=== PATIENT | female | born 1960 | race Caucasian/White ===

== ENCOUNTER → 2019-11-13 | Outpatient (CLI) | payer OTHER ==
[~2019-11-13] MED LIST: CLARITIN10 MG PO; KEFLEX500 MG PO; LEVOTHYROXINE 0.15MG; LIDODERM 5%1 PATC1 TRANSDERM; MARINOL10 MG PO; MEDROL DOSPAK21 TAB PO; METHADONE HCL 110 M1 OR; MULTIVITAMIN W1 EAC5 PO; NORCO 10-325 T1 EACH PO; OXYCONTIN40 MG PO; PHENERGAN 25 MG25 M1 PO; PREDNISONE 20 M20 MG PO; PREMPHASE 0.621 EAC1; PREVACID DIS; PREVACID30 MG PO; TOPAMAX; TRAMADOL 50 MG50 MG; VALIUM10 MG PO; ZANTAC 150MG T150 MG PO; ZOFRAN ODT4 MG PO; ZYRTEC10 MG PO
== END ==
LOC: RAD 14:51
DX: M25.552 Pain in left hip (principal); M53.3 Sacrococcygeal disorders, not elsewhere classified; Z98.1 Arthrodesis status

== ENCOUNTER 2020-10-08 01:35 | Observation (INO) | payer OTHER ==
[2020-10-08] VITALS (20 sets, daily range): BP systolic 93–153; BP diastolic 51–75
[~2020-10-08] VITALS: Ht 165.1 cm; Wt 89.8 kg
--- NOTE | ~2020-10-08 | HC ---
[facility] [place] [address] CONSULTATION Name: SKYLAR LEIGH KERMIT Room #: 209-P ADM IN M.R.#: [id number] Admission: 10/08/20 Attend Phys: Kade Braxton MD, Discharge: Date of : 64 Report #: [id number] THIS REPORT FOR: cc: Tana Kemp Sarah H. DO Mancuso, Gerald M. MD [facility] ~ DATE OF SERVICE: 10/08/2020 CARDIOLOGY CONSULTATION HISTORY OF PRESENT ILLNESS: The patient is a 60-year-old female who presents to [place]'s Emergency Room, sister drove her to the Emergency Room this morning, with onset of chest pain approximately 11:00 tonight. She was having difficulty sleeping and came in with some shortness of breath and vague symptoms, but predominantly chest pressure with some radiation and some shortness of breath, apprehension and anxiety. Subsequently, the EKG showed inferolateral ST elevation. Sinus rhythm was having a lot of ventricular ectopy. According to the Emergency Room physician, he initiated amiodarone drip, heparin drip, aspirin and Lipitor 80. Still having moderate amount of discomfort, 5/10. She will be presenting here to the catheterization lab. She does not have a history of cardiac disease, but multiple risk factors including hypertension, hypercholesterolemia and diabetes. She does not take her medications. She apparently has disability due to back and has had lumbar fusions. There has been a decrease in exercise tolerance, she states. No prior chest pain until tonight. MEDICATIONS: Medications she is not aware, but supposed to be on a diabetic pill and hypertensive medications. PAST MEDICAL HISTORY: Positive for hypertension, diabetes, continued tobacco use, lumbar fusions. She denies any other surgeries. SOCIAL HISTORY: She lives independent. She is . She has 2 children. She is a pack a day smoker. She denies illicit drugs. No alcohol. FAMILY HISTORY: Mother and brother had premature coronary artery disease. REVIEW OF SYSTEMS: Essentially negative except for stated above. PHYSICAL EXAMINATION: VITAL SIGNS: Pulse is 100, blood pressure is 118/60. HEENT: Eyes reveal xanthelasmas. Pharynx is clear. NECK: Shows preserved upstrokes without JVD or bruits. LUNGS: Prolonged expiratory phase, but clear anteriorly. CARDIOVASCULAR: Distant heart tones, S1, S2, tachycardic. [facility] [address] [place] [address] CONSULTATION Name: SKYLAR LEIGH KERMIT Room #: 209-P [facility] IN M.R.#: [id number] Admission: 10/08/20 Attend Phys: Kade Braxton MD, Discharge: Date of : 64 Report #: [id number] ABDOMEN: Soft, nontender. EXTREMITIES: Show trace of edema. Distal pulses diminished, but intact. NEUROLOGIC: Nonfocal. SKIN: Warm and dry without xanthoma or ulcer. MUSCULOSKELETAL: Mild arthritic changes. ASSESSMENT: 1. STEMI, inferior lateral, acute myocardial infarction. 2. Hypertension. 3. Diabetes (blood sugar 346). 4. Hypercholesterolemia. RECOMMENDATIONS AND PLAN: We will proceed emergently to the catheterization lab for intervention. Risks, benefits, alternatives discussed. The patient does like to proceed. We will address the insulin and heparin bolus was given. We will check ACT. Thank you for asking me to assist in the care of this patient. By: 0332 [id number] Kade Braxton MD, FACC /nt
[2020-10-08] MEDS ORDERED: NEURONTIN300 MG PO (01:44)
[2020-10-08 02:14] LABS: HEMATOCRIT 52.9 % (37.0-47.0); HEMOGLOBIN 17.7 gm/dL (12.0-15.0); MCH 28.4 pg (26.0-34.0); MCHC 33.4 g/dL (28.0-37.0); MCV 85.2 fL (80.0-100.0); PLATELET COUNT 331 thou/uL (150-400); RBC 6.22 mil/uL (4.20-5.00); RDW 14.2 % (10.5-14.5); WBC 25.9 thou/uL (4.0-11.0)
[2020-10-08 02:38] LABS: CALCIUM 10.2 mg/dL (8.5-10.1); CREATININE 1.1 mg/dL (0.6-1.0); POTASSIUM 4.8 mmol/L (3.5-5.1)
[2020-10-08 02:40] LABS: APTT 26.2 Seconds (24.5-32.8); INR 1.1; PROTIME 11.4 Seconds (9.3-11.4)
[2020-10-08 02:46] LABS: ALBUMIN 2.9 g/dL (3.4-5.0); TOTAL BILIRUBIN 0.5 mg/dL (0.2-1.0); TOTAL PROTEIN 8.3 g/dL (6.4-8.2)
[2020-10-08 03:15] LABS: TROPONIN-I 4.66 ng/mL (<0.06)
[2020-10-08 03:20] LABS: ABSOLUTE NEUTROPHILS 19.9 thou/uL (1.4-8.2); LARGE PLATELETS FEW; PLATELET ESTIMATE NORMAL
--- NOTE | 2020-10-08 03:46 | NUR ---
CALLED SISTER (BECKI WILDE) [phone] TO UPDATE ON PATIENT CONDITION, STENT PLACED IN LITERACY COORDINATOR, PATIENT TOLERATED WELL. WILL BE TAKEN TO ROOM 209 POST-CATH. NO FURTHER QUESTIONS. VISITING HOURS DISCUSSED. SISTER STATES UNDERSTANDING.
--- NOTE | 2020-10-08 06:33 | NUR ---
PATIENT IS A NEW ADMISSION TO THE UNIT. SHE ARRIVED VIA CART FROM THE MANAGER ELECTRONIC AND WAS TRANSFERRED TO THE BED WITHOUT INCIDENT. PATIENT IS FULLY ALERT AND ORIENTED BUT EXTREMELY TIRED. SHE FELL ASLEEP LONG-TERM DURING ADMISSION AND EXPRESSED A DESIRE TO SLEEP. RIGHT GROIN SITE CLEAN, DRY, AND INTACT. AMIODARONE AND FLUIDS RUNNING PER PROVIDER ORDER. WEAK PEDAL AND POSTERIOR TIBIALIS PULSES. PATIENT IS IN SINUS RHYTHM WITH SOME ST ELEVATION. SKIN IS MOTTLED AND COOL. NURSE TO INITIATE PLAN OF CARE AND COMPLETE MOST OF ADMISSION. CONTINUE PLAN OF CARE.
[2020-10-08 10:37] LABS: FOLIC ACID 10.9 ng/mL (8.6-58.9)
--- NOTE | 2020-10-08 18:37 | NUR ---
ASSUMED CARE OF PT AT SHIFT CHANGE. ASSESSMENTS CHARTED. MEDS GIVEN PER SEP. PT A&OX4, NO C/O PAIN OR DISTRESS. PT SLEPT MOST OF SHIFT. GROIN SITE CDI, NO BRUISING OR HEMATOMA. PLAN FOR ECHO ON SATURDAY. CHEMICAL DEPENDENCY ATTENDANT SHOWS ST ELEVATION, CARDIOLOG IS AWARE. WILL CONTINUE TO MONITOR FOR CHANGES AND FOLLOW POC.
[2020-10-09 04:45] VITALS: BP 103/56
--- NOTE | 2020-10-09 07:52 | NUR ---
ASSESSMENTS CHARTED, MEDS CHARTED GIVEN. PATIENT VERY SLEEPY DURING SHIFT, EASILY ARROUSABLE C/O HEARTBURN DURING NIGHT, BUT NOT LIKE PAIN SHE CAME IN WITH. NORMAL SALINE AND AMIO DRIPS RUNNING THROUGH NIGHT. PLAN OF CARE IS FOR ECHO ON SATURDAY. FALL PRECAUTIONS IN PLACE DURING SHIFT.
[2020-10-09 08:00] VITALS: BP 108/66
--- NOTE | 2020-10-09 11:27 | EKG ---
[address] [place] [address] ELECTROCARDIOGRAM REPORT Name: REESESKYLARAURORA CARMEN Room #: 209-P ADM IN M.R.#: [id number] Admission: 10/08/20 Attend Phys: Kade Braxton MD, Discharge: Date of : 64 Report #: [id number] [facility] ED Test Date: 2020-10-08 Test Time: 02:00:13 Pat Name: SKYLAR LEIGH Department: Room: 209 Gender: F Solutions Consultant: radha : 1960 Requested By: Louis Chen Order Number: [id number] MD: John Paul Can Measurements Intervals [place] Rate: 101 P: MT: QRS: 75 QRSD: 101 T: 58 QT: 347 QTc: 450 Interpretive Statements SINUS TACHYCARDIA/arrhytmia Ventricular premature complex Inferoposterior infarct, acute (LCx) Anterolateral infarct, acute Compared to ECG 10/21/2014 15:47:38 Ventricular premature complex(es) now present Myocardial infarct finding now present Sinus rhythm no longer present Electronically Signed On 10-09-2020 11:26:50 CDT by John Paul Can [email or web address] <ELECTRONICALLY SIGNED> By: John Paul Can MD, FAC 10/09/20 1126 9 020 John Paul Can MD, [facility] /EPI
--- NOTE | 2020-10-09 11:27 | EKG ---
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 : 1960 Requested By: Kade Braxton Order Number: [id number] MD: John Paul Can Measurements Intervals [employer] Rate: 108 P: 62 AZ: 145 QRS: 75 QRSD: 99 T: 61 QT: 347 QTc: 465 Interpretive Statements Sinus tachycardia Ventricular tachycardia, unsustained Inferoposterior infarct, acute (LCx) Anterolateral infarct, acute Compared to ECG 10/08/2020 02:00:13 Ventricular tachycardia now present Atrial flutter no longer present 2:1 AV block no longer present Ventricular premature complex(es) no longer present Myocardial infarct finding still present Electronically Signed On 10-09-2020 11:26:57 CDT by John Paul Can [email or web address] <ELECTRONICALLY SIGNED> By: John Paul Can MD, FACC 10/09/20 1126 0 0 John Paul Can MD, [facility] /EPI
--- NOTE | 2020-10-09 11:27 | EKG ---
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 <ELECTRONICALLY SIGNED> By: John Paul Can MD, [facility] 10/09/20 1127 0753 0753 John Paul Can MD, [facility] /EPI
[2020-10-09 11:45] VITALS: BP 93/53
[2020-10-09 13:58] LABS: URINE BILIRUBIN NEGATIVE (Negative); URINE BLOOD NEGATIVE (Negative); URINE CLARITY CLEAR; URINE COLOR YELLOW; URINE GLUCOSE-RANDOM* 3+ (Negative); URINE KETONES 1+ (Negative); URINE LEUKOCYTES-REFLEX TRACE (Negative); URINE NITRITE-REFLEX NEGATIVE (Negative); URINE PROTEIN (DIPSTICK) NEGATIVE (Negative); URINE UROBILINOGEN 0.2 E.U./dl (0.2-1.0)
[2020-10-09 14:46] LABS: AMP/METHAMP Negative (Negative); BARBITURATES Negative (Negative); BENZODIAZEPINES Negative (Negative); COCAINE Negative (Negative); METHADONE Negative (Negative); OPIATES Negative (Negative); PCP Negative (Negative)
[2020-10-09 16:05] VITALS: BP 104/58
[2020-10-09 16:17] VITALS: BP 93/53
--- NOTE | 2020-10-09 16:24 | NUR ---
ASSUMED CARE OF PT AT SHIFT CHANGE. ASSESSMENTS CHARTED. MEDS GIVEN PER SEP. PT A&OX4, NO C/O PAIN OR DISTRESS DURING SHIFT. PLAN FOR ECHO IN MORNING AND POSSIBLE DC. WILL CONTINUE TO MONITOR FOR CHANGES AND FOLLOW POC.
[2020-10-10 03:17] LABS: MCH 27.5 pg (26.0-34.0); MCHC 32.7 g/dL (28.0-37.0); MCV 84.1 fL (80.0-100.0); RBC 4.52 mil/uL (4.20-5.00); RDW 13.9 % (10.5-14.5); WBC 16.6 thou/uL (4.0-11.0)
[2020-10-10 03:27] LABS: CALCIUM 8.5 mg/dL (8.5-10.1); CREATININE 0.6 mg/dL (0.6-1.0); POTASSIUM 3.4 mmol/L (3.5-5.1)
[2020-10-10 03:31] LABS: HEMOGLOBIN 12.4 gm/dL (12.0-15.0)
--- NOTE | 2020-10-10 04:35 | NUR ---
ASSESSMENTS CHARTED, MEDS CHARTED GIVEN. PATIENT RESTING IN BED DURING SHIFT. PATIENT CONTINUES ON AMIODORONE DRIP AND MAINTENANCE FLUIDS DURING SHIFT. PLAN IS FOR PATIENT TO HAVE ECHO DONE TODAY. PATIENT WAS STARTED ON METFORMIN AND EFFIENT DURING DAY. FALL PRECAUTIONS IN PLACE DURING SHIFT.
[2020-10-10 04:43] VITALS: BP 112/69
[2020-10-10] MEDS ORDERED: EFFIENT10 MG PO (07:58)
[2020-10-10] MEDS ORDERED: LIPITOR40 MG PO (07:58)
[2020-10-10] MEDS ORDERED: METOPROLOL TART25 MG PO (07:58)
[2020-10-10] MEDS ORDERED: ASPIRIN325 PO (07:58)
[2020-10-10] MEDS ORDERED: TRADJENTA5 MG PO (09:37)
[2020-10-10] MEDS ORDERED: GLUCOPHAGE500 MG PO (09:37)
[2020-10-10 09:48] VITALS: BP 102/58
--- NOTE | 2020-10-10 10:28 | NUR ---
RECEIVED PT'S CARE AROUND 724; PT. 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 AOX4; C/O PAIN OVER BACK; ST. DOES NOT WANT THE MEDICATION FROM LAST NIGHT BECAUSE IT MAKES HER SLEEPY; DURING DR. MACIAS ROUNDING OK TO D/C FLUIDS; D/C ORDERS ON PLACED; PT. NOTIFIED; EDUCATED ABOUT D/C PROCESS; ST. UNDERSTANDING; WAITING ON ECHO TO BE D/C HOME; ASSESSMENT CHARGED; FOLLOWING POC; WILL WORK ON D/C ORDERS;
[2020-10-10 11:27] VITALS: BP 102/58
--- NOTE | 2020-10-10 12:12 | 2DMMODE ---
[facility] [place] [address] 2 D/M-MODE ECHOCARDIOGRAM Name: SKYLAR LEIGH [facility] Room #: 209-P [facility] Deborah M.R.#: [id number] Admission: 10/08/20 Attend Phys: Kade Braxton MD, Discharge: Date of : 64 Report #: [id number] THIS REPORT FOR: cc: Tana Kemp Sarah H. DO Santiago, Patrick MD [facility] ~ APPROVED REPORT Study performed: 10/10/2020 11:08:35 EXAM: Comprehensive 2D, Doppler, and color-flow Echocardiogram Patient Location: Bedside Room #: 209 Status: routine BSA: 1.98 HR: 85 bpm BP: 102/58 mmHg Rhythm: NSR Other Information Study Quality: Adequate Indications Chest pain. STEMI- status post PCI. Hx: HTN, DM, tobacco abuse. 2D Dimensions RVDd: 29.67 mm IVSd: 10.82 (7-11mm) LVOT Diam: 19.19 (18-24mm) LVDd: 44.75 mm PWd: 9.81 (7-11mm) LVDs: 38.01 (25-40mm) Left Atrium: 30.35 (27-40mm) Aortic Root: 29.25 mm Volumes Left Atrial Volume (Systole) Single Plane 4CH: 44.25 mL Single Plane 2CH: 56.40 mL LA ESV Index: 29.00 mL/m2 Aortic Valve AoV Peak Manish.: 1.35 m/s AO Peak Gr.: 7.32 mmHg LVOT Max P.96 mmHg LVOT Max V: 0.99 m/s [facility] [address] [place] [address] 2 D/M-MODE ECHOCARDIOGRAM Name: REESESKYLAR KERMIT Room #: 209-P [facility] IN .R.#: [id number] Admission: 10/08/20 Attend Phys: Kade Braxton, Discharge: Date of : 64 Report #: [id number] KENYETTA Vmax: 2.12 cm2 Mitral Valve E/A Ratio: 0.5 MV Decel. Time: 213.92 ms MV E Max Manish.: 0.42 m/s MV A Manish.: 0.88 m/s MV PHT: 62.04 ms IVRT: 131.49 ms Pulmonary Vein P Vein S: 0.55 m/s P Vein D: 0.39 m/s P Vein S/D Ratio: 1.41 Tricuspid Valve RAP Estimate: 5.00 mmHg Left Ventricle The left ventricle is normal size. Regional wall motion abnormalities are noted. There is normal left ventricular wall thickness. Left ventricular systolic function is moderately decreased. LVEF is 40%. Mild diastolic dysfunction is present (impaired relaxation pattern). Right Ventricle The right ventricle is normal size. The right ventricular systolic function is normal. Atria The left atrium size is normal. The right atrium size is normal. Aortic Valve The aortic valve is normal in structure. Leaflets are mildly calcified. No aortic regurgitation is present. There is no aortic valvular stenosis. Mitral Valve The mitral valve is normal in structure. There is no mitral valve regurgitation noted. No evidence of mitral valve stenosis. Tricuspid Valve The tricuspid valve is normal in structure. There is no tricuspid valve regurgitation noted. Unable to assess PA pressure. [facility] [address] [place] [place] [address] 2 D/M-MODE ECHOCARDIOGRAM Name: SKYLAR LEIGH [facility] Room #: 209-P ADM IN M.R.#: [id number] Admission: 10/08/20 Attend Phys: Kade Braxton, Discharge: Date of : 64 Report #: [id number] Pulmonic Valve Pulmonic valve is not well visualized. Great Vessels The aortic root is normal in size. Ascending aorta is not well visualized. IVC is normal in size and collapses >50% with inspiration. Pericardium There is no pericardial effusion. <Conclusion> Normal left ventricular size/wall thickness Ejection fraction 40% with moderate inferior hypokinesis Grade 1 diastolic dysfunction Normal atrial size Color-flow Doppler studies performed of the aortic/mitral/tricuspid/pulmonary valve Normal aortic/mitral valve structure and function Minimal tricuspid valve insufficiency Unable to assess pulmonary systolic pressure Minimal posterior pericardial effusion Normal aortic root size. <ELECTRONICALLY SIGNED> By: John Paul Can MD, FACC 10/10/201211 11 11 John Paul Can MD, [facility] /INF
--- NOTE | 2020-10-10 14:25 | CATHLAB ---
[facility] [place] [address] INVASIVE PROCEDURE REPORT Name: SKYLAR LEIGH KERMIT Room #: 209-P DIS Deborah Bundy#: [id number] Admission: 10/08/20 Attend Phys: Kade Braxton MD, Discharge: 10/10/20 Date of : 64 Report #: [id number] THIS REPORT FOR: cc: Tana Kemp Sarah H. DO Mancuso, Gerald M. MD [facility] ~ APPROVED REPORT Study performed: 10/08/2020 02:38:28 Patient Details Patient Status: ED Room #: 209 The patient is a 60 year-old female Event Personnel Kade Braxton Juice Packaging Machines Setter, Cira Cabello RN RN, Jeanne Saldana RN RN, Keena Pineda RTR, GLOBAL CEO Monitor, Jj Andino RTR Scrub Procedures Performed Art Access - R femoral artery* Left Heart Cath w/or w/o Coronaries [id number] [facility] Revasc AMI Total/Sub Single CIRC C9606 AMIREVSING 11631 Initial Mod Sed Same Phys/QHP Gr5y 488611 45055 Mod Sed Same Phys/QHP Ea 494070 Abdominal Aortography 585359 Hemostasis w/ Mynx Indication Chest pain Procedure Narrative The Right Groin^ was infiltrated with 1% Lidocaine subcutaneous anesthesia. A PINNACLE 6FR Sheath #[id number] sheath was inserted into the RFA^. Coronary angiography was performed using coronary diagnostic catheters. The right coronary system was accessed and visualized with a JR4 catheter. The left coronary system was accessed and visualized with a JL4 catheter. The left ventricle was accessed and visualized with a PIGTAIL catheter. Left ventriculogram was performed in 30 degree projection. An aortogram of the abdominal aorta was performed. Closure device was deployed with a 6 Fr MYNXGRIP 6/7F #[id number]. Hemostasis was obtained with manual pressure following sheath removal without any complications. The patient tolerated the procedure well and there were no complications associated with the procedure. There was no hematoma. MYNXGRIP FAILED. [address] [address] INVASIVE PROCEDURE REPORT Name: SKYLAR LEIGH [facility] Room #: 209-P [facility]..#: [id number] Admission: 10/08/20 Attend Phys: Kade Braxton, Discharge: 10/10/20 Date of : 64 Report #: [id number] Intraoperative Conscious Sedation Sedation start time: 02:52 Case end Time: 04:01 Fentanyl 50 mcg Versed 1 mg Fluoro Time: 7.52 minutes Dose: DAP 6103.10 cGycm2 758 mGy Contrast Type and Amount: Visipaque 160 ml Hemodynamics The aortic pressure is 126/77 mmHg with a mean of 97 mmHg. The left ventricular pressure is 132/6 mmHg with a mean of mmHg. The left ventricular end diastolic pressure is 14 mmHg. PCI Technique Lesion Percutaneous coronary intervention was performed on the second obtuse marginal branch segment. A LAUNCHER 6FR EBU 3.5 #[id number] Guide Catheter was used to engage the ostium. A Luge Wire .014 x 182CM #[id number] Interventional Guidewire was used to cross the lesion. BALLOON DILATION A Balloon catheter Sprinter OTW 2.25 x 20 #[id number] was inserted and inflated up to 8.00atm for 20seconds. Additional Inflation: 8.00atm for 10seconds. Additional Inflation: 12.00atm for 21seconds. Additional Inflation: 12 franny for 13 seconds STENT DEPLOYMENT A drug-eluting stent RESOLUTE ELEAZAR OTW 2.25 X 22 #[id number] was inserted and inflated up to 14.00atm for 32seconds. Conclusion #1. Successful PTCA stent of a large OM 3 mid vessel subtotal infarct vessel to 0% residual and SOFIA grade III flow. Placement of a 2.25 x 22 resolute Eleazar postdilated 2.4 mm SOFIA grade III flow #2 left main with mild disease giving rise to LAD and circumflex #3 the LAD is mild proximal calcification eccentric proximal lesion of 50 to 60% proximal mid lesion of 50 to 60% then a well-preserved vessel around the apex. #4 the dominant right coronary is relatively small and diffusely diseased appears diabetic type vessel giving rise to a single small PDA which is patent. No indication for intervention. Somewhat of a codominant system. #5 normal left ventricular size and inferior lateral hurtado are moderately hypokinetic EF 45% range inferior apex severely hypokinetic [facility] [address] [place] [address] INVASIVE PROCEDURE REPORT Name: SKYLAR LEIGH KERMTI Room #: 209-P [facility] IN M.R.#: [id number] Admission: 10/08/20 Attend Phys: Kade Braxton, Discharge: 10/10/20 Date of : 64 Report #: [id number] #6 abdominal aortogram reveals mild aortic ectasia no aneurysm. Recommendations plan: Continue aggressive risk factor modification. Dual antiplatelet therapy has been initiated. Patient is free and free with resolution of EKG changes. Transfer to CCU to follow post coronary stent protocol. <ELECTRONICALLY SIGNED> By: Kade Braxton MD, [facility] 10/10/20 1425 1425 1425 Kade Braxton MD, FACC /INF
== END 2020-10-10 12:29 | disposition home or self-care (01) ==
LOC: ER 01:35 → 2N 02:55
PROVIDERS: Emergency Medicine; Hospitalist; Nurse Practitioner; ADMIT Internal Medicine Cardiovascular Disease; ATTEND Internal Medicine Cardiovascular Disease
DX: I25.10 Atherosclerotic heart disease of native coronary artery without angina pectoris (principal); I21.4 Non-ST elevation (NSTEMI) myocardial infarction; E11.9 Type 2 diabetes mellitus without complications; E78.5 Hyperlipidemia, unspecified; E03.9 Hypothyroidism, unspecified; F17.210 Nicotine dependence, cigarettes, uncomplicated; Z79.82 Long term (current) use of aspirin; Z79.899 Other long term (current) drug therapy
CPT/HCPCS: 10081

== ENCOUNTER 2020-10-11 05:27 | Inpatient (IN) | payer OTHER ==
[~2020-10-11] VITALS: Ht 165.1 cm; Wt 81.6 kg
[2020-10-11] VITALS (12 sets, daily range): BP systolic 90–117; BP diastolic 38–55
[~2020-10-11 05:27] MED LIST changes: +ASPIRIN325 PO; +EFFIENT10 MG PO; +GLUCOPHAGE500 MG PO; +LIPITOR40 MG PO; +METOPROLOL TART25 MG PO; +NEURONTIN300 MG PO; +TRADJENTA5 MG PO
[2020-10-11 05:47] LABS: HEMATOCRIT 21.2 % (37.0-47.0); MCHC 33.1 g/dL (28.0-37.0); MCV 84.7 fL (80.0-100.0); PLATELET COUNT 267 thou/uL (150-400); RDW 13.6 % (10.5-14.5); WBC 19.9 thou/uL (4.0-11.0)
[2020-10-11 05:56] LABS: CALCIUM 8.2 mg/dL (8.5-10.1); CREATININE 0.8 mg/dL (0.6-1.0); POTASSIUM 4.4 mmol/L (3.5-5.1)
[2020-10-11 06:03] LABS: APTT 23.6 Seconds (24.5-32.8); INR 1.1; PROTIME 11.8 Seconds (9.3-11.4)
[2020-10-11 06:06] LABS: ALBUMIN 1.5 g/dL (3.4-5.0); TOTAL BILIRUBIN 0.2 mg/dL (0.2-1.0); TOTAL PROTEIN 4.8 g/dL (6.4-8.2)
[2020-10-11 06:09] LABS: TROPONIN-I 5.44 ng/mL (<0.06)
--- NOTE | 2020-10-11 06:24 | NUR ---
Updated sister Donald Zahraa with pt's permission Donald's number: [phone]
--- NOTE | 2020-10-11 06:57 | EKG ---
[place] [address] [address] 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 : 1960 Requested By: Louis Chen Order Number: [id number] MD: John Paul Can Measurements Intervals [place] Rate: 97 P: 55 AZ: 145 QRS: 69 QRSD: 96 T: 57 QT: 390 QTc: 496 Interpretive Statements Sinus rhythm Abnormal R-wave progression, early transition Probable inferior infarct, old Compared to ECG 10/08/2020 07:53:04 No significant changes Electronically Signed On 10-11-2020 6:57:32 CDT by John Paul Can [email or web address] <ELECTRONICALLY SIGNED> By: John Paul Can MD, [facility] 10/11/20 0657 2 2 John Paul Can MD, [facility] /EPI
--- NOTE | 2020-10-11 08:00 | NUR ---
OBTAINED PERMISSION TO SPEAK WITH PT'S SISTER FROM PT. GAVE BECKI, SISTER AND UPDATE AND PT'S NEW ROOM ASSIGNMENT
[2020-10-11 08:58] LABS: ABSOLUTE NEUTROPHILS 15.9 thou/uL (1.4-8.2); METAMYELOCYTES 3 %; MYELOCYTES 1 %; PLATELET ESTIMATE NORMAL
[2020-10-11 17:50] LABS: HEMATOCRIT 29.4 % (37.0-47.0); MCH 28.1 pg (26.0-34.0); MCHC 32.8 g/dL (28.0-37.0); MCV 85.5 fL (80.0-100.0); PLATELET COUNT 216 thou/uL (150-400); RBC 3.44 mil/uL (4.20-5.00); RDW 14.6 % (10.5-14.5); WBC 29.9 thou/uL (4.0-11.0)
[2020-10-11 17:52] LABS: HEMOGLOBIN 9.7 gm/dL (12.0-15.0)
[2020-10-11 18:40] LABS: ABSOLUTE NEUTROPHILS 27.2 thou/uL (1.4-8.2)
[2020-10-11 18:41] LABS: NUCLEATED RBCS 1 /100WBC
[2020-10-11 18:44] LABS: ANISOCYTOSIS 1+
[2020-10-11 18:45] LABS: HYPOCHROMASIA 1+; POLYCHROMASIA SLIGHT
--- NOTE | 2020-10-11 19:33 | NUR ---
PT CARE ASSUMED AT 0900. ASSESSMENTS CHARTED. MEDICATIONS CHARTED. RAC IV. REJ IV. SINUS RHYTHM. O2 2LPM NC. PROTONIX GTT. 2 UNITS PRBC; 1 IN PT'S ROOM, 1 STARTED DURING EGD PROCEDURE CHARTING FINISHED ON PAPER AND PLACED IN CHART. EGD PROCEDURE; DUODENAL ARTERY BLEED, DUODENAL ULCER AND ESOPHAGEAL ULCER, BIOPSY TAKEN FOR H PYLORI AND GASTRITIS. ACHS.
[2020-10-12 03:45] VITALS: BP 114/52
--- NOTE | 2020-10-12 07:07 | NUR ---
ASSUME CARE 1900. PT/VITALS STABLE. BP RUNS SOFT. BUT PT IS ASSYMPTOMATIC. DENIES ANY PAIN. ADEQUATE URINE OUTPUT. ASSESSMENT CHARTED. NO DISTRESS NOTED THROUGHT THE NIGHT. NO BLOODY STOOLS NOTED. PLAN IS POSSIBLE DISCHARGE WITHIN 1-2 DAYS. WILL CONTINUE TO MONITOR AND FOLLOW WITH POC
[2020-10-12 07:09] LABS: URINE BILIRUBIN NEGATIVE (Negative); URINE BLOOD TRACE (Negative); URINE CLARITY CLEAR; URINE COLOR YELLOW; URINE GLUCOSE-RANDOM* 3+ (Negative); URINE KETONES 1+ (Negative); URINE LEUKOCYTES-REFLEX NEGATIVE (Negative); URINE NITRITE-REFLEX NEGATIVE (Negative); URINE PROTEIN (DIPSTICK) NEGATIVE (Negative); URINE UROBILINOGEN 0.2 E.U./dl (0.2-1.0)
[2020-10-12 07:16] LABS: AMP/METHAMP POSITIVE (Negative); BARBITURATES Negative (Negative); BENZODIAZEPINES Negative (Negative); COCAINE Negative (Negative); METHADONE Negative (Negative); OPIATES POSITIVE (Negative); PCP Negative (Negative)
[2020-10-12 07:31] VITALS: BP 98/49
[2020-10-12 08:34] LABS: HEMATOCRIT 25.4 % (37.0-47.0); HEMOGLOBIN 8.4 gm/dL (12.0-15.0); MCHC 33.1 g/dL (28.0-37.0); MCV 84.7 fL (80.0-100.0); PLATELET COUNT 208 thou/uL (150-400); RDW 14.2 % (10.5-14.5); WBC 27.9 thou/uL (4.0-11.0)
[2020-10-12 08:45] LABS: CALCIUM 7.8 mg/dL (8.5-10.1); CREATININE 0.5 mg/dL (0.6-1.0); MAGNESIUM 1.7 mg/dL (1.8-2.4); POTASSIUM 4.4 mmol/L (3.5-5.1)
[2020-10-12 08:52] LABS: ABSOLUTE NEUTROPHILS 22.6 thou/uL (1.4-8.2); METAMYELOCYTES 2 %
[2020-10-12 08:53] LABS: ANISOCYTOSIS SLIGHT; POLYCHROMASIA OCCASIONAL
--- NOTE | 2020-10-12 10:19 | NUR ---
PATIENT REMAINS ON PROTONIX GTT. NO REPORTS OF BLOODY STOOLS OVER NIGHT. PATIENT HGB REDRAWN THIS MORNING. CARDIOLOGY ROUNDED, WILL NEED TO DETERMINE APPROPRIATE TIME TO RESUME BLOOD THINNER. PATIENT VOICES NO NEEDS OR CONCERNS AT THIS TIME.
[2020-10-12 11:28] VITALS: BP 100/54
[2020-10-12 15:10] VITALS: BP 96/53
[2020-10-12 19:41] VITALS: BP 115/95
[2020-10-13 04:32] VITALS: BP 97/57
[2020-10-13 05:43] LABS: HEMATOCRIT 23.8 % (37.0-47.0); HEMOGLOBIN 7.9 gm/dL (12.0-15.0); MCHC 33.1 g/dL (28.0-37.0); MCV 84.6 fL (80.0-100.0); RBC 2.82 mil/uL (4.20-5.00); RDW 14.1 % (10.5-14.5); WBC 26.3 thou/uL (4.0-11.0)
[2020-10-13 07:10] VITALS: BP 93/45
--- NOTE | 2020-10-13 07:54 | NUR ---
SLEPT MOST OF SHIFT. UP TO COMODE NEEDED WITH STANDBY ASSIST. HAD BLACK STOOL THIS AM WITH NO VISIBLE BLOOD NOTED. WORKING ON GOALS AND PLAN OF CARE FOR NOC. PROGRESSING SLOWLY TOWARDS DISCHARGE GOALS. PAIN MEDICATION GIVEN NEEDED. CONTINUE TO ASSES.
--- NOTE | 2020-10-13 08:00 | NUR ---
chart review. cardiac inpatient pharmacist passed on will not dc if still has bleeding, she will stay. per bedside nurse stools still dark. jose r visited with rick at bedside, cm cont to wear face mask and shield during visit. intro to jose r and cesar. she reported live with her sister, "on lower level of home. no stairs. manage own medication but not on any. have back problem. cane only for long distances. still dive vehicle."/rick. no anticipated needs.
[2020-10-13 08:04] LABS: ALBUMIN 1.8 g/dL (3.4-5.0); CALCIUM 7.6 mg/dL (8.5-10.1); CREATININE 0.5 mg/dL (0.6-1.0); MAGNESIUM 1.5 mg/dL (1.8-2.4); POTASSIUM 3.6 mmol/L (3.5-5.1); TOTAL BILIRUBIN 0.2 mg/dL (0.2-1.0); TOTAL PROTEIN 4.4 g/dL (6.4-8.2)
[2020-10-13 11:06] VITALS: BP 101/50
--- NOTE | 2020-10-13 11:20 | NUR ---
PT IS AXOX4, SOMETIMES DIFFICULT TO UNDERSTAND. PT COMPLAINS OF CHRONIC LOWER BACK PAIN. GI PODIATRIC TECHNICIAN CONSULTED, DR JORDAN CONSULTED, PT/OT CONSULTED. PT ADVANCED TO FULL LIQUID DIET. POC IS TO CONTINUE TO OBSERVE PT FOR ANY NEW BLEEDING VIA STOOL. PROTONIX DRIP GOING AT 25ML/HR. PT IS UPX1 ASST TO TOILET. FALL PRECAUTIONS IN PLACE.
[2020-10-13 15:16] VITALS: BP 92/42
[2020-10-13 15:51] LABS: HEMATOCRIT 24.5 % (37.0-47.0); HEMOGLOBIN 7.9 gm/dL (12.0-15.0)
[2020-10-13 20:02] VITALS: BP 108/55
[2020-10-14 03:53] VITALS: BP 97/50
[2020-10-14 05:07] LABS: CALCIUM 7.9 mg/dL (8.5-10.1); CREATININE 0.7 mg/dL (0.6-1.0); MAGNESIUM 1.4 mg/dL (1.8-2.4); POTASSIUM 3.1 mmol/L (3.5-5.1)
--- NOTE | 2020-10-14 05:07 | NUR ---
SLEPT MOST OF SHIFT. PAIN MEDICATION GIVEN NEEDED. COMPLAINTS AT START OF SHIFT OF LEFT GROIN PAIN. PATIENT WENT TO SLEEP AND HAS NOT FURTHER COMPLAINTS OF GROIN PAIN. HAD ONE LOOSE DARK BLACK STOOL. CONTINUE TO ASSES.
[2020-10-14 05:08] LABS: HEMATOCRIT 22.9 % (37.0-47.0); HEMOGLOBIN 7.5 gm/dL (12.0-15.0); MCHC 32.6 g/dL (28.0-37.0); MCV 85.9 fL (80.0-100.0); RBC 2.66 mil/uL (4.20-5.00); RDW 14.1 % (10.5-14.5); WBC 26.7 thou/uL (4.0-11.0)
--- NOTE | 2020-10-14 08:28 | NUR ---
TROPONIN REPORT TO JOSY ROWELL NP. NO FURTHER ORDERS GIVEN.
[2020-10-14 09:00] VITALS: BP 100/51
--- NOTE | 2020-10-14 11:59 | NUR ---
ON-GOING ASSESSMENT: CM REVIEWED CHART AND SPOKE WITH PATIENT. PTS HEMOGLOBIN IS LOW AND WILL CONTINUED TO BE MONITORED. PER ATTENDING ONCE HEMOGLOBIN STABILIZES SHE MAY BE READY FOR DISCHARGE POSSIBLY OVER THE WEEKEND OR SATURDAY. CM SPOKE WITH PATIENT. PHYSICAL THERAPY HAD BEEN WORKING WITH PATIENT USING A WALKER. PT REPORTS SHE DOES NOT HAVE A WALKER AT HOME AND IS REQUESTING ONCE (ROLLATER IF POSSIBLE). CM CONTACTED MEDICAID PRIOR AUTH LINE [phone] OPT 2 AND A ROLLATER IS NOT COVERED BUT A STANDARD WALKER HAS BEEN AUTHORIZED. CM NOTIFIED PATIENT AND SHE HAS NO PREFERENCE OF [employer]. CM NOTIFIED LIASON AT [employer] WHO REPORTS SHE WILL DELIVER WALKER TO PATIENT TODAY IN PREPS FOR DISCHARGE WHEN SHE IS MEDICALLY STABLE.
[2020-10-14 12:00] VITALS: BP 90/25
[2020-10-14 14:19] VITALS: BP 90/25
[2020-10-14 16:30] VITALS: BP 58/36
[2020-10-14 21:07] VITALS: BP 90/66
[2020-10-15] VITALS (7 sets, daily range): BP systolic 83–110; BP diastolic 33–73
[2020-10-15 03:22] LABS: HEMOGLOBIN 7.2 gm/dL (12.0-15.0); MCH 27.9 pg (26.0-34.0); MCHC 32.6 g/dL (28.0-37.0); MCV 85.6 fL (80.0-100.0); RBC 2.57 mil/uL (4.20-5.00); RDW 14.5 % (10.5-14.5); WBC 18.6 thou/uL (4.0-11.0)
[2020-10-15 03:30] LABS: CALCIUM 7.7 mg/dL (8.5-10.1); CREATININE 0.7 mg/dL (0.6-1.0); MAGNESIUM 1.7 mg/dL (1.8-2.4); POTASSIUM 3.9 mmol/L (3.5-5.1)
--- NOTE | 2020-10-15 03:50 | NUR ---
Assumed pt care at 1900. Pt is sleeping but arousable. Pt is alert and oriented. No sign of distress noted in pt. Verbalizes pain. Pain med administered upon request. Assessment completed and documented. Scheduled meds administered to pt. No acute events overnight. Pt is stable through the night. Continue to monitor. No futher needs at this time.
--- NOTE | 2020-10-15 19:11 | NUR ---
ROGERS REPORT GIVEN TO BASIL HALL.
[2020-10-15 21:33] LABS: HEMATOCRIT 27.9 % (37.0-47.0); HEMOGLOBIN 9.1 gm/dL (12.0-15.0); MCH 28.3 pg (26.0-34.0); MCHC 32.8 g/dL (28.0-37.0); MCV 86.4 fL (80.0-100.0); RBC 3.23 mil/uL (4.20-5.00); RDW 14.8 % (10.5-14.5); WBC 13.1 thou/uL (4.0-11.0)
[2020-10-16 03:22] LABS: HEMATOCRIT 29.5 % (37.0-47.0); HEMOGLOBIN 9.9 gm/dL (12.0-15.0); MCH 29.2 pg (26.0-34.0); MCHC 33.7 g/dL (28.0-37.0); MCV 86.6 fL (80.0-100.0); RBC 3.4 mil/uL (4.20-5.00); RDW 14.5 % (10.5-14.5); WBC 10.9 thou/uL (4.0-11.0)
[2020-10-16 03:32] LABS: CALCIUM 7.5 mg/dL (8.5-10.1); CREATININE 0.6 mg/dL (0.6-1.0); MAGNESIUM 1.5 mg/dL (1.8-2.4); POTASSIUM 3.5 mmol/L (3.5-5.1)
[2020-10-16 04:08] VITALS: BP 114/62
--- NOTE | 2020-10-16 07:33 | NUR ---
ASSESSMENTS CHARTED, MEDS CHARTED GIVEN. PATIENT HAD LARGE BLACK DIARRHEA STOOL THIS MORNING, NO PRAFUL BLOOD SEEN. NEW IV PLACED IN RIGHT HAND DURING SHIFT, RIGHT AC LEAKED, REMOVED. PATIENT AMBULATED WITH WALKER AND GAIT BELT FROM CHAIR TO BED, BED TO BATHROOM AND BACK. C/O BACK PAIN TWICE. PATIENT RECEIVED TWO UNITS PRBC'S YESTERDAY. HGB INCREASED THIS MORNING FROM 9.1 TO 9.9. FALL PRECAUTIONS IN PLACE DURING SHIFT.
[2020-10-16 08:00] VITALS: BP 132/56
[2020-10-16] MEDS ORDERED: CARAFATE 11 GM/10 M1 PO (09:47)
[2020-10-16] MEDS ORDERED: EFFIENT10 MG PO (09:47)
[2020-10-16] MEDS ORDERED: CIPRO500 M1 PO (09:49)
[2020-10-16] MEDS ORDERED: FLAGYL500 M1 PO (09:49)
[2020-10-16 12:02] VITALS: BP 101/61
[2020-10-16 13:30] VITALS: BP 90/25
--- NOTE | 2020-10-16 14:04 | NUR ---
PATIENT DISCHARGED HOME AT THIS TIME. RESPIRATIONS ARE EVEN NON LABORED.DOES NOT SEEM TO BE IN PAIN OR DISTRESS. IN A PLEASANT MOOD. TAKEN HOME IN PRIVATE CARE DRIVEN BY FRIEND. DISHCARGE INSTRUCTION AND F/U APPT GIVEN TO PATIENT.
--- NOTE | 2020-10-17 16:06 | PATH ---
[facility] [address] [address] PATHOLOGY RPT PROCEDURE Name: MAURA LEIGH Room #: 213-P [facility] IN M.R.#: [id number] Admission: 10/11/20 Date of : 64 Discharge: 10/16/20 Report #: [id number] Path Case #: [id number] [facility] Accession Number: [id number] . 01 Material submitted: . PART A: stomach - BIOPSY ANTRUM RULE OUT H. PYLORI. Modifiers: ANTRUM PART B: esophagus - BIOPSY ESOPHAGITIS . 01 Clinical history: . EGD PRE-OP DIAGNOSIS: GI BLEED POST-OP DIAGNOSIS: DUODENAL ULCER,ESOPHAGEAL ULCER . 02 Diagnosis: A. Gastric mucosa, antrum rule out H. pylori, endoscopic biopsy: - Mild reactive gastropathy. - Negative for intestinal metaplasia or atrophy. - Negative for Helicobacter pylori (properly controlled immunohistochemical stain performed). . B. Gastroesophageal mucosa, esophagitis, endoscopic biopsy: - Marked acute esophagitis with focal ulceration and reactive atypia. - No definite intestinal metaplasia (Floyd's mucosa) present. LBQ 10/14/2020 1305 Local . 02 Comment: A GMS fungal special stain is ordered on block B1 and the results of this will be reported in an addendum to follow. (IUV/db; 10/14/2020) . 02 Addendum: . This addendum is issued subsequent to reviewing a properly controlled GMS fungal special stain performed on block B1. It shows no definite fungal hyphal elements present within the epithelium. (IUV:oliver; 10/17/2020) . . Professional services performed by [facility] at [facility], [address] [place] [address] , [place] [address]. Technical services performed by [facility] at [address] [place] [address], [address], [place] [address]. QMS/10/17/2020 Addendum Electronically Signed by Pratima Peres MD, Pathologist . 02 Electronically signed: . Pratima Peres MD, Pathologist NPI- [id number] . [address] [place] [address] PATHOLOGY RPT PROCEDURE Name: MAURA LEIGH Room #: 213-P [facility] IN M.R.#: [id number] Admission: 10/11/20 Date of : 64 Discharge: 10/16/20 Report #: [id number] Path Case #: [id number] Gross description: . A. The specimen is received in formalin, labeled "Leigh, Maura", "biopsy antrum r/o H. pylori". Received are multiple segments of pale alejandro tissue ranging in size from 0.1 cm to 0.3 cm. Specimen is entirely submitted in cassette A1. . B. The specimen is received in formalin, labeled "Leigh, Maura", "biopsy esophagitis". Received are 2 segments of pale white tissue measuring 0.2 and 0.2 cm. The specimen is entirely submitted in cassette B1.([facility]; 10/13/2020) LIGIA/SHARON 10/13/2020 0942 Local . 02 Pathologist provided ICD-10: K31.9, K20.90, K22.10 . 02 CPT . 085440, 338175, [id number], [id number] Specimen Comment: A courtesy copy of this report has been sent to [phone] Specimen Comment: [phone], Specimen Comment: Report sent to / DR MACIAS / DR RODRIGUEZ Performed at: 01 [facility] [address] [place] [address] [address], [place], [place] [id number] MD Jose Hensley MD Phone: [phone] Performed at: [address] [facility] [id number] MD Pratima Peres MD Phone: [phone]
== END 2020-10-16 13:55 | disposition home or self-care (01) | DRG 377 ==
LOC: ER 05:27 → EROBS 06:42 → 2N 06:42
PROVIDERS: Emergency Medicine; Internal Medicine; Internal Medicine Cardiovascular Disease; Internal Medicine Gastroenterology; Nurse Practitioner; ADMIT Hospitalist; ATTEND Hospitalist
PROC: 30233N1 Transfusion of Nonautologous Red Blood Cells into Peripheral Vein, Percutaneous Approach (ICD-10-PCS; principal; 2020-10-11)
PROC: 0W3P8ZZ Control Bleeding in Gastrointestinal Tract, Via Natural or Artificial Opening Endoscopic (ICD-10-PCS; 2020-10-11)
PROC: 0DB68ZX Excision of Stomach, Via Natural or Artificial Opening Endoscopic, Diagnostic (ICD-10-PCS; 2020-10-11)
PROC: 0DD38ZX Extraction of Lower Esophagus, Via Natural or Artificial Opening Endoscopic, Diagnostic (ICD-10-PCS; 2020-10-11)
DX: K26.4 Chronic or unspecified duodenal ulcer with hemorrhage (principal); I21.3 ST elevation (STEMI) myocardial infarction of unspecified site; E43 Unspecified severe protein-calorie malnutrition; E87.1 Hypo-osmolality and hyponatremia; K22.10 Ulcer of esophagus without bleeding; I50.22 Chronic systolic (congestive) heart failure; D64.9 Anemia, unspecified; I25.10 Atherosclerotic heart disease of native coronary artery without angina pectoris; E78.5 Hyperlipidemia, unspecified; F17.210 Nicotine dependence, cigarettes, uncomplicated; D72.829 Elevated white blood cell count, unspecified; E11.9 Type 2 diabetes mellitus without complications; K21.00 Gastro-esophageal reflux disease with esophagitis, without bleeding; K44.9 Diaphragmatic hernia without obstruction or gangrene; I11.0 Hypertensive heart disease with heart failure; Z98.1 Arthrodesis status; Z95.5 Presence of coronary angioplasty implant and graft; Z79.82 Long term (current) use of aspirin; Z79.84 Long term (current) use of oral hypoglycemic drugs; Z79.899 Other long term (current) drug therapy; Z88.5 Allergy status to narcotic agent; Z88.8 Allergy status to other drugs, medicaments and biological substances; Z68.30 Body mass index [BMI] 30.0-30.9, adult
CPT/HCPCS: 10081; 62110; 62900

== ENCOUNTER → 2020-10-20 | Outpatient (CLI) | payer OTHER ==
[~2020-10-20] MED LIST changes: +CARAFATE 11 GM/10 M1 PO; +CIPRO500 M1 PO; +FLAGYL500 M1 PO
== END ==
LOC: SJCVC 08:37
PROVIDERS: ATTEND Internal Medicine Cardiovascular Disease
DX: I10 Essential (primary) hypertension (principal); Z87.19 Personal history of other diseases of the digestive system

== ENCOUNTER → 2020-11-04 | Outpatient (CLI) | payer OTHER | LOC: SJCVCIMAG 07:37 | PROVIDERS: ATTEND Internal Medicine Cardiovascular Disease | DX: I25.10 Atherosclerotic heart disease of native coronary artery without angina pectoris (principal); E78.00 Pure hypercholesterolemia, unspecified; I10 Essential (primary) hypertension; E78.5 Hyperlipidemia, unspecified; E11.9 Type 2 diabetes mellitus without complications; I25.2 Old myocardial infarction; Z72.0 Tobacco use; Z79.02 Long term (current) use of antithrombotics/antiplatelets; Z88.8 Allergy status to other drugs, medicaments and biological substances; Z79.84 Long term (current) use of oral hypoglycemic drugs; Z79.899 Other long term (current) drug therapy; Z87.19 Personal history of other diseases of the digestive system; Z82.49 Family history of ischemic heart disease and other diseases of the circulatory system ==

== ENCOUNTER → 2020-11-16 | Outpatient (CLI) | payer OTHER | LOC: SJCVCIMAG 07:32 | PROVIDERS: ATTEND Internal Medicine Cardiovascular Disease | DX: I73.9 Peripheral vascular disease, unspecified (principal); M79.604 Pain in right leg; M79.605 Pain in left leg; Z79.899 Other long term (current) drug therapy; Z87.891 Personal history of nicotine dependence ==

== ENCOUNTER → 2020-12-22 | Outpatient (CLI) | payer OTHER | LOC: SJCVC 10:39 | PROVIDERS: ATTEND Internal Medicine Cardiovascular Disease | DX: M79.604 Pain in right leg (principal); M79.605 Pain in left leg; Z79.84 Long term (current) use of oral hypoglycemic drugs; Z79.899 Other long term (current) drug therapy; Z87.891 Personal history of nicotine dependence ==

== ENCOUNTER 2021-01-08 07:45 | Emergency (ER) | payer OTHER ==
[~2021-01-08] VITALS: Ht 165.1 cm; Wt 76.2 kg
[2021-01-08 08:37] LABS: ABSOLUTE NEUTROPHILS 9.1 thou/uL (1.4-8.2); BASOPHILS 0.3 % (0.0-2.0); EOSINOPHILS 0.4 % (0.0-3.0); HEMATOCRIT 48.1 % (37.0-47.0); HEMOGLOBIN 15.4 gm/dL (12.0-15.0); LYMPHOCYTES 27.9 % (24.0-44.0); MCH 26.9 pg (26.0-34.0); MCHC 32.1 g/dL (28.0-37.0); MCV 83.8 fL (80.0-100.0); MONOCYTES 5.4 % (1.0-8.0); PLATELET COUNT 413 thou/uL (150-400); RBC 5.74 mil/uL (4.20-5.00); RDW 15.2 % (10.5-14.5); WBC 13.8 thou/uL (4.0-11.0)
[2021-01-08 08:38] LABS: CALCIUM 9.5 mg/dL (8.5-10.1); CREATININE 0.8 mg/dL (0.6-1.0); POTASSIUM 4.5 mmol/L (3.5-5.1)
[2021-01-08 08:44] LABS: ALBUMIN 3.3 g/dL (3.4-5.0); TOTAL BILIRUBIN 0.3 mg/dL (0.2-1.0); TOTAL PROTEIN 7.1 g/dL (6.4-8.2)
[2021-01-08] MEDS ORDERED: AAA-MED REC COMPLETE PO (09:48)
[2021-01-08] MEDS ORDERED: METFORMIN HCL500 M3 PO (10:10)
[2021-01-08] MEDS ORDERED: LIPITOR40 MG PO (10:11)
[2021-01-08] MEDS ORDERED: PRASUGREL HCL10 MG PO (10:11)
[2021-01-08] MEDS ORDERED: TORSEMIDE10 MG PO (10:11)
[2021-01-08] MEDS ORDERED: METOPROLOL TART25 MG PO (10:11)
[2021-01-08] MEDS ORDERED: METFORMIN HCL500 MG PO (10:27)
[2021-01-08] MEDS ORDERED: ULTRAM 50MG TAB50 MG PO (10:29)
[2021-01-08 10:40] VITALS: BP 148/77
== END 2021-01-08 10:40 | disposition home or self-care (01) ==
LOC: ER 07:45
PROVIDERS: Emergency Medicine Emergency Medical Services
DX: M79.661 Pain in right lower leg (principal); M79.662 Pain in left lower leg; F17.210 Nicotine dependence, cigarettes, uncomplicated; Z88.8 Allergy status to other drugs, medicaments and biological substances; Z88.5 Allergy status to narcotic agent; Z79.899 Other long term (current) drug therapy; Z95.2 Presence of prosthetic heart valve; I10 Essential (primary) hypertension